=== PATIENT | male | born 1980 | race Caucasian/White ===

== ENCOUNTER 2018-11-23 08:12 | Emergency (ER) | payer MEDICAID ==
[~2018-11-23] VITALS: Ht 167.6 cm; Wt 78.1 kg
[2018-11-23 08:15] VITALS: BP 157/91; PULSE 70; RESP 18; Ht 167.6 cm; Wt 78.1 kg
[2018-11-23] MEDS ORDERED: FLUC150T PO (08:36)
[2018-11-23] MEDS ORDERED: HC30CR25 TOP (08:36)
--- NOTE | 2018-11-23 09:14 | ERD ---
ER Documentation Chief Complaint Chief Complaint genital pain burning & itching 3wks HPI 38 yr old male complaining of anal pruritus. Patient states he is putting miconazole in the region with no alleviation.. Patient has been going for a month. Denies any penile or testicular pain. Has no rectal bleeding. Has some small fissures noted. Denies medical problems. NKDA. Surgical history denies. Social history denies ROS All systems reviewed and are negative except as per history of present illness. Medications Home Meds Active Scripts Fluconazole* (Diflucan*) 150 Mg Tablet, 150 MG PO ONCE, #1 TAB Prov:MAMI GARLAND PA-C 11/23/18 Hydrocortisone* Topical (Hydrocortisone* Topical) 2.5%-28.3 Gm Cream..g., 1 APPLIC TOP BID, #1 TUB Prov:MAMI GARLAND PA-C 11/23/18 Allergies Allergies: Coded Allergies: No Known Allergy (Unverified , 11/23/18) PMhx/Soc Medical and Surgical Hx: pt denies Medical Hx, pt denies Surgical Hx Hx Alcohol Use: No Hx Substance Use: No Hx Tobacco Use: No Smoking Status: Never smoker FmHx Family History: No diabetes, No coronary disease, No other Physical Exam Vitals Vital Signs Date Temp Pulse Resp B/P (MAP) Pulse Ox O2 O2 Flow FiO2 Time Delivery Rate 11/23/18 98.2 70 18 157/91 98 08:15 (113) Physical Exam GENERAL: The patient is well-appearing, well-nourished, in no acute distress CHEST: Clear to auscultation bilaterally. There are no rales, wheezes or rhonchi. HEART: Regular rate and rhythm. No murmurs, clicks, rubs or gallops. SKIN: Erythema noted around rectum with dry scaling rash. Procedures/MDM MDM: 38-year-old male presenting with rectal itching. Patient may have contact dermatitis. I have low suspicion for infectious etiology. I have low suspicion for fungal infection as patient did not receive any alleviation while using miconazole. Patient did not have hemorrhoids. I have low suspicion for parasitic infection. Patient is discharged stricter precautions and told patient to follow-up with primary care. All questions answered at discharge Departure Diagnosis: Primary Impression: Anal pruritus Condition: Stable Patient Instructions: Anal Fistula Referrals: COMM[facility]ITY CLINICS YOU HAVE RECEIVED A MEDICAL SCREENING EXAM AND THE RESULTS INDICATE THAT YOU DO NOT HAVE A CONDITION THAT REQUIRES URGENT TREATMENT IN THE EMERGENCY DEPARTMENT. FURTHER EVALUATION AND TREATMENT OF YOUR CONDITION CAN WAIT UNTIL YOU ARE SEEN IN YOUR DOCTORS OFFICE WITHIN THE NEXT 1-2 DAYS. IT IS YOUR RESPONSIBILITY TO MAKE AN APPOINTMENT FOR FOLOW-UP CARE. IF YOU HAVE A PRIMARY DOCTOR --you should call your primary doctor and schedule an appointment IF YOU DO NOT HAVE A PRIMARY DOCTOR YOU CAN CALL OUR PHYSICIAN REFERRAL HOTLINE AT IF YOU CAN NOT AFFORD TO SEE A PHYSICIAN YOU CAN CHOSE FROM THE FOLLOWING [facility] CL[facility]ICS [facility] [id number] [facility]. [facility] [address] [facility] [facility] [address] [facility] [facility] [address] [facility]. [facility] [address] [facility]. [facility] [address] Additional Instructions: FOLLOW UP WITH YOUR PRIMARY CARE PHYSICIAN TOMORROW.Return to this facility if you are not improving as expected. MAMI GARLAND PA-C Nov 23, 2018 09:14
== END 2018-11-23 08:55 | disposition home or self-care (01) ==
LOC: FTE 08:12
DX: L29.0 Pruritus ani (principal)
CPT/HCPCS: 99283